=== PATIENT | male | born 1990 | race African-American/Black ===

== ENCOUNTER 2022-04-20 08:10 | Emergency (ER) | payer MEDICAID, SELFPAY ==
[2022-04-20 08:11] VITALS: BP 136/81; PULSE 56; RESP 18; TEMP 36.9; O2SAT 100; BMI 32.5
[2022-04-20 08:31] VITALS: BP 158/91; PULSE 53; RESP 12; O2SAT 100
[2022-04-20 09:31] VITALS: BP 154/79; PULSE 56; RESP 16
--- NOTE | 2022-04-20 09:43 | HMH.EDOD ---
Discharge Plan Disposition Patient Disposition: Home, Self-Care Prescriptions Prescriptions: New naloxone [Narcan] 4 mg/actuation spray,non-aerosol 4 mg intranasal Q2M Qty: 2 1RF Rx Instructions: spray 1 dose into ONE nostril; alternate nostrils w each dose until help arrives No Action ciprofloxacin HCl [Cipro] 500 mg tablet 500 mg PO BID Qty: 20 0RF naproxen [Naprosyn] 500 mg tablet 500 mg PO BID PRN (Reason: pain) Qty: 60 2RF Referrals Follow up/Referrals: Provider,Referral, [Primary Care Provider] - See instructions Activity Restrictions/Add. Instructions Additional Instructions/Restrictions: Recommend following up with your primary care doctor to talk about opioid use disorder treatment Clinical Impressions Clinical Impression: Drug overdose Instructions Patient Instructions: DI for Drug Overdose in Adults Discharge ED Provider: Truman Henriquez Overdose HPI General Chief Complaint: Overdose Stated Complaint: OD Time Seen by Provider: 04/20/22 08:15 Mode of Arrival: EMS Source of Information: Patient and EMS Limitations: No Limitations Description of Symptoms (Recalled from ER Triage Doc. by RN): pt was dropped by some guys on the side of the road after overdosing on IV fentanyl and given narcan. His grandmother picked him up and was with grandmother when EMS arrived to pt. PT arrived with feces and vomit all over his self and clothing, c/o pain and needing his prescribed methodone. [facility] pt was given 5 nasal narcan before he arrived to them. PT given gown and attempted to help to change out of his clothes, pt refusing at this time. PT is refusing any blood work or any intervention at this time. States he only wants his prescribed methodone for his pain. History of Present Illness HPI Narrative: Patient is a 31-year-old male with a history of substance abuse who presents with concern for overdose. Reported that the patient was using IV fentanyl earlier today when he became unresponsive. He was given 5 doses of nasal Narcan by bystanders prior to him being dropped off at his grandmother's house. His grandmother called EMS and they transported the patient here. Upon arrival patient is covered in feces and vomit. He states that he is in pain all over and is requesting methadone. He denies any shortness of breath. Denies any substance abuse. He declines any blood work or IV access at this time. Related Data Previous Rx's Medication Instructions Recorded ciprofloxacin HCl 500 mg tablet 500 mg PO BID #20 tabs 11/26/21 (Cipro) naproxen 500 mg tablet (Naprosyn) 500 mg PO BID PRN pain #60 tabs 11/26/21 naloxone 4 mg/actuation nasal 4 mg intranasal Q2M #2 ea 04/20/22 spray (Narcan) Allergies Allergy/AdvReac Type Severity Reaction Status Date / Time No Known Allergies Allergy Unverified 11/26/21 14:14 PFSH PFSH Social History Smoking Status: Current every day smoker alcohol intake: current current occupational status: unemployed Travel in the last 8 weeks: None ROS Obtained: Yes All systems reviewed & no additional complaints except as documented A 14 point review system was performed and negative except per HPI Physical Exam General General appearance: alert and in no apparent distress Comment: Clothing covered in vomit and feces but awake and irritable, yawning Head Head exam: atraumatic, normocephalic and normal inspection Eye Eye exam: Present normal appearance, PERRL and EOMI ENT ENT exam: Present normal exam, normal oropharynx, mucous membranes moist, TM's normal bilaterally and normal external ear exam Neck Neck exam: Present normal inspection, full ROM and trachea midline; Absent meningismus or lymphadenopathy Chest Chest inspection: Present normal inspection and symmetric chest wall rise; Absent tenderness Respiratory Respiratory exam: Present normal lung sounds bilaterally; Absent respiratory distress Cardiovascular Cardiovascular e
[2022-04-20 10:20] VITALS: BP 154/79; PULSE 53; RESP 16; TEMP 36.9; O2SAT 100
== END 2022-04-20 10:21 | disposition home or self-care (01) ==
PROVIDERS: Emergency Provider Student in an Organized Health Care Education/Training Program
DX: T40.411A Poisoning by fentanyl or fentanyl analogs, accidental (unintentional), initial encounter (principal); Z79.1 Long term (current) use of non-steroidal anti-inflammatories (NSAID)
CPT/HCPCS: 99284

== ENCOUNTER → 2023-05-06 15:51 | Outpatient (CLI) | payer MEDICAID, SELFPAY ==
[2023-05-06 17:17] LABS: Basophils % 0.5 % (0.1-2.0); Eosinophils # 0.1 K/mm3 (0.0-0.4); Hematocrit 54.6 % (42.0-52.0); Hemoglobin 17.2 g/dL (14.1-18.0); Lymphocytes # 1.8 K/mm3 (0.7-4.5); Lymphocytes % 30.9 % (10-50); Mean Corpuscular HGB Conc 31.5 g/dL (31.8-35.4); Mean Corpuscular Hemoglobin 28.3 pg (27.0-31.2); Mean Corpuscular Volume 89.8 fl (80-94); Mean Platelet Volume 7.7 fl (7.4-10.4); Monocytes # 0.3 K/mm3 (0.1-1.0); Monocytes % 4.6 % (1.7-9.3); Neutrophils # 3.6 K/mm3 (1.8-7.8); Platelet Count 385 K/mm3 (142-424); Red Blood Count 6.08 M/mm3 (4.60-6.20); Red Cell Distribution Width 14.3 % (11.5-17.5); White Blood Count 5.7 K/mm3 (4.8-10.8)
[2023-05-06 17:18] LABS: Alanine Aminotransferase 29 U/L (12-78); Albumin/Globulin Ratio 1.1 (1.1-1.8); Alkaline Phosphatase 96 U/L (38-126); Anion Gap 17.2 mEq/L (5-15); Aspartate Amino Transferase 32 U/L (17-59); Bilirubin,Total 0.3 mg/dl (0.2-1.3); Blood Urea Nitrogen 11 mg/dl (9-20); Calcium 9.7 mg/dl (8.4-10.2); Carbon Dioxide 26 mmol/L (22.0-30.0); Chloride 101 mmol/L (98-107); Estimated Glomerular Filt Rate 113 ml/min (>60); GFR (African American) 136 ML/MIN (>60); Globulin 4.7 g/dL (1.3-3.2); Glucose 122 mg/dl (74-100); Potassium 4.2 mmoL/L (3.5-5.1); Sodium 140 mmol/L (136-145); Total Protein,Serum 9.7 g/dl (6.3-8.2)
[2023-05-08 08:10] LABS: Hepatitis B Core Antibody, IgM Negative (Negative)
[2023-05-08 11:33] LABS: HIV Screen 4th Generation wRfx Non Reactive (Non Reactive); Rapid Plasma Reagin Ab Titer Non Reactive titer (NonRea<1:1)
[2023-05-10 19:58] LABS: QuantiFERON-TB Gold Plus Negative (Negative)
[2023-05-12 21:42] LABS: HCV Genotype Charge YES; Hepatitis C Genotype 2b (.)
[2023-05-22 08:40] LABS: Hepatitis B Surface Antigen Negative
== END ==
PROVIDERS: PCP Nurse Practitioner Family; Visit Provider Nurse Practitioner Family
DX: F11.20 Opioid dependence, uncomplicated (principal)
CPT/HCPCS: 36415; 80053; 85025; 86480; 86593; 86703; 86706; 87340; 87522; 87902; G0432

== ENCOUNTER 2025-02-25 10:02 | Emergency (ER) | payer SELFPAY ==
[2025-02-25] VITALS (13 sets, daily range): BP systolic 102–148; BP diastolic 50–86; PULSE 47–102; RESP 15–25; TEMP 36.6–37; O2SAT 92–100; BMI 33.5
--- NOTE | 2025-02-25 10:08 | ECG_ITS ---
APPROVED REPORT Exam: Resting ECG HR:51 bpm ECG Measurements Heart Rate 51 AXES PA 158 P 8 QRSd 112 QRS 35 QT 480 T 30 QTc 457 Conclusion Sinus bradycardia at [address] or T wave changes concerning for ischemia Electronically signed by : Anette Maldonado, 02/25/2025 17:58:23
--- NOTE | 2025-02-25 10:08 | HMH.EDGENADL ---
Discharge Plan Disposition Patient Disposition: Home, Self-Care Condition: Good Prescriptions Prescriptions: New ondansetron 4 mg tablet,disintegrating 4 mg PO Q8H PRN (Reason: nausea and vomiting) 4 Days Qty: 10 0RF No Action naproxen [Naprosyn] 500 mg tablet 500 mg PO BID PRN (Reason: pain) Qty: 60 2RF azithromycin [Zithromax Z-Roc] 250 mg tablet See Rx Instructions PO .COMPLEX Qty: 6 0RF Rx Instructions: For 250 mg dose pack: take 500 mg today (day 1), then 250 mg for 4 days (days 2-5) PO naloxone [Narcan] 4 mg/actuation spray,non-aerosol 4 mg intranasal Q2M Qty: 2 1RF Rx Instructions: spray 1 dose into ONE nostril; alternate nostrils w each dose until help arrives methadone 10 mg Tablet 130 mg PO DAILY Referrals Follow up/Referrals: Provider,Referral, MD [Primary Care Provider, Medical] - See instructions Activity Restrictions/Add. Instructions Additional Instructions/Restrictions: Take Zofran as needed for nausea and vomiting. Continue to stay well-hydrated with water, other electrolyte solutions. Return to the emergency department if you are unable to tolerate oral intake or if you have any other acute concerns. Clinical Impressions Clinical Impression: Vomiting Instructions Patient Instructions: DI for Diarrhea and Traveler's Diarrhea -- Adult, DI for Diarrhea and Traveler's Diarrhea -- Child, DI for Nausea -- Adult, DI for Nausea -- Child Print Language Print Language: Slovenian Discharge ED Provider: Anette Maldonado Adult HPI General Chief complaint: Nausea/Vomiting/Diarrhea Stated complaint: NAUSEA/VOMITING Time Seen by Provider: 02/25/25 10:08 History of Present Illness HPI narrative: Patient is a 34-year-old male with a past medical history of methadone use who presented to the emergency department with acute onset vomiting this morning. Patient states that he has had multiple episodes of vomiting, patient denies any diarrhea. Patient denies any abdominal pain. Patient denies any chest pain or shortness of breath. Patient has been unable to tolerate oral intake. Patient denies any headache or vision changes. Patient denies any prior surgical history. Patient denies any fevers. Patient denies any recent sick contacts. Related Data Home Medications ?Medication ?Instructions ?Recorded ?Confirmed methadone 10 mg tablet 130 mg PO DAILY 02/25/25 02/25/25 Previous Rx's ?Medication ?Instructions ?Recorded naproxen 500 mg tablet (Naprosyn) 500 mg PO BID PRN pain #60 tabs 11/26/21 naloxone 4 mg/actuation nasal 4 mg intranasal Q2M #2 ea 04/20/22 spray (Narcan) azithromycin 250 mg tablet See Rx Instructions PO .COMPLEX #6 06/21/22 (Zithromax Z-Roc) tabs ondansetron 4 mg disintegrating 4 mg PO Q8H PRN nausea and 02/25/25 tablet vomiting 4 days #10 tabs Allergies Allergy/AdvReac Type Severity Reaction Status Date / Time No Known Allergies Allergy Unverified 11/26/21 14:14 [facility] Disclaimer: The information contained in this section may have been updated after the patient was seen, as this information can be updated by other users. Social History Smoking Status: Current every day smoker alcohol intake: current alcohol intake frequency: holidays/special occasions only current occupational status: unemployed Travel in the last 8 weeks?: None Have you lived/traveled outside [place] in past 30 days?: No Contact w/someone who lives/traveled outside [place] past 30 days?: No Exposure to someone with infectious disease in past 14 days?: No Do you have a fever (greater than 100.4 F or 38 C)?: No Have you tested positive for COVID-19?: No Exposed to someone with COVID-19 in past 14 days?: No Do you have a sore throat?: No Do you have a cough?: No Do you have any weakness?: No Do you have any diarrhea?: No Are you experiencing any unusual bleeding?: No Do you have any muscle aches/pain?: No Do you have any abdominal pain?: No Are you experiencing loss of taste or smell?: No Other Medical History Have you received the Pneumonia Vaccine: No ROS Obtained: Yes All systems reviewed & no additional complaints except as documented and Yes Systems reviewed as appropriate & no additional complaints except as documented Physical Exam General General appearance: alert, in no apparent distress and other (Diaphoretic) Head Head exam: atraumatic, normocephalic and normal inspection Eye Eye exam: Present normal appearance, PERRL and EOMI; Absent scleral icterus ENT ENT exam: Present normal exam and normal external ear exam Neck Neck exam: Present normal inspection and full ROM Chest Chest inspection: Present normal inspection and symmetric chest wall rise Respiratory Respiratory exam: Present normal lung sounds bilaterally; Absent respiratory distress or wheezes Cardiovascular Cardiovascular exam: Present regular rate, normal rhythm and normal heart sounds Abdominal Exam Abdominal exam: Present soft and distention; Absent tenderness, guarding or rebound Extremities Exam Extremities exam: Present normal inspection and full ROM Back Exam Back exam: Present normal inspection and full ROM Neurological Exam Neurological exam: Present alert and oriented X3 Psychiatric Psychiatric exam: Present normal affect and normal mood Skin Skin exam: Present warm and dry Medical Decision Making Medical Records Screening: Per USPSTF and CDC recommendations, given the prevalence of disease in our region, it is our hospital?s policy to screen for HIV and viral Hepatitis for all patients aged 18 and over and those with ongoing risk factors. Jose Carlos Inquiry Pt receiving controlled substance: No Vital Signs: 02/25/25 10:08 02/25/25 10:11 02/25/25 10:31 Temperature 98.6 F Temperature Source Oral Pulse Rate 60 51 L Pulse Rate [Left] 102 H Respiratory Rate 20 15 Blood Pressure 126/85 134/74 Blood Pressure [Left Arm] 126/85 Blood Pressure Mean Blood Pressure Mean [Left Arm] 98 Blood Pressure Source Blood Pressure Source [Left Arm] Automatic Cuff Blood Pressure Position 02 Sat by Pulse Oximetry 100 98 93 L Oxygen Delivery Method Room Air 02/25/25 11:01 02/25/25 11:30 02/25/25 12:01 Temperature Temperature Source Pulse Rate 50 L 52 L 55 L Pulse Rate [Left] Respiratory Rate 23 20 18 Blood Pressure 124/76 148/86 H 105/50 L Blood Pressure [Left Arm] Blood Pressure Mean 97 Blood Pressure Mean [Left Arm] Blood Pressure Source Automatic Cuff Blood Pressure Source [Left Arm] Blood Pressure Position Sitting 02 Sat by Pulse Oximetry 97 97 98 Oxygen Delivery Method Room Air 02/25/25 12:32 02/25/25 13:01 02/25/25 13:31 Temperature Temperature Source Pulse Rate 54 L 50 L 54 L Pulse Rate [Left] Respiratory Rate 15 20 17 Blood Pressure 113/73 102/68 L 147/68 H Blood Pressure [Left Arm] Blood Pressure Mean Blood Pressure Mean [Left Arm] Blood Pressure Source Automatic Cuff Blood Pressure Source [Left Arm] Blood Pressure Position Sitting 02 Sat by Pulse Oximetry 99 92 L 97 Oxygen Delivery Method Room Air 02/25/25 14:00 02/25/25 14:31 02/25/25 15:01 Temperature Temperature Source Pulse Rate 47 L 51 L Pulse Rate [Left] Respiratory Rate 24 25 H 19 Blood Pressure 131/69 132/75 121/71 Blood Pressure [Left Arm] Blood Pressure Mean Blood Pressure Mean [Left Arm] Blood Pressure Source Blood Pressure Source [Left Arm] Blood Pressure Position 02 Sat by Pulse Oximetry 99 98 99 Oxygen Delivery Method 02/25/25 15:50 Temperature 97.9 F Temperature Source Oral Pulse Rate 49 L Pulse Rate [Left] Respiratory Rate 16 Blood Pressure 138/83 Blood Pressure [Left Arm] Blood Pressure Mean Blood Pressure Mean [Left Arm] Blood Pressure Source Automatic Cuff Blood Pressure Source [Left Arm] Blood Pressure Position Supine 02 Sat by Pulse Oximetry Oxygen Delivery Method Room Air Lab Data Lab results reviewed: Yes I reviewed the patient's lab results. Lab Results 02/25/25 10:16: WBC 9.4, RBC 4.78, Hgb 14.5, Hct 42.9, MCV 89.7, MCH 30.3, MCHC 33.8, RDW 13.1, Plt Count 336, MPV 8.7, Neut % (Auto) 72.2, Lymph % (Auto) 17.6, Mcmullen % (Auto) 7.2, Eos % (Auto) 2.4, Baso % (Auto) 0.4, Neut # (Auto) 6.8, Lymph # (Auto) 1.7, Mcmullen # (Auto) 0.7, Eos # (Auto) 0.2, Baso # (Auto) 0.0, Sodium 139, Potassium 3.7, Chloride 101, Carbon Dioxide 27, Anion Gap 14.7, BUN 17, Creatinine 0.90, Estimated Creat Clear 180, Estimated GFR 97, Est GFR ( Amer) 118, Glucose 121 H, Calcium 9.4, Magnesium 1.7, Total Bilirubin 0.3, AST 32, ALT 24, Alkaline Phosphatase 120, Total Protein 8.6 H, Albumin 4.5, Globulin 4.1 H, Albumin/Globulin Ratio 1.1, Lipase 32, HCV Ab LINDSEY w/Rflx PCR Qn Reactive, HIV Ag/Ab Combo Qual Negative 02/25/25 10:16 02/25/25 10:16 Orders (Tests/Meds): ED MEDICATIONS Discontinued Medications Generic Name Dose Route Start Last Admin Trade Name Freq PRN Reason Stop Dose Admin Diphenhydramine HCl 25 mg 02/25/25 10:09 02/25/25 10:36 Diphenhydramine 50mg/Ml Vial IV 02/25/25 10:10 25 mg ONCE ONE Administration Sodium Chloride 1,000 mls @ 999 mls/hr 02/25/25 10:09 02/25/25 10:36 Sod Chlor 0.9% 1000ml Bag IV 02/25/25 11:09 999 mls/hr .Q1H1M ONE Administration Sodium Chloride 1,000 mls @ 999 mls/hr 02/25/25 12:31 02/25/25 12:48 Sod Chlor 0.9% 1000ml Bag IV 02/25/25 13:31 999 mls/hr .Q1H1M ONE Administration Methadone HCl 130 mg 02/25/25 14:37 02/25/25 15:13 Methadone 10mg Tablet PO 02/25/25 14:38 130 mg ONCE ONE Administration Ondansetron HCl 4 mg 02/25/25 12:05 02/25/25 12:12 Ondansetron 4mg/2ml Vial IV 02/25/25 12:06 4 mg ONCE ONE Administration Prochlorperazine Edisylate 10 mg 02/25/25 12:31 02/25/25 12:48 Prochlorperazine 10mg/2ml Vial IV 02/25/25 12:32 10 mg ONCE ONE Administration ORDERS Category Date Time Status CBC w/Auto Diff [Complete Blood Count Auto Diff] Stat Lab 02/25/25 10:16 Completed CMP [Comprehensive Metabolic Panel] Stat Lab 02/25/25 10:16 Completed HCV RNA PCR, Quant Stat Lab 02/25/25 10:16 Received HIV Combo Stat Lab 02/25/25 10:16 Completed Hepatitis C Ab Qual. W/ RFX Stat Lab 02/25/25 10:16 Completed Lipase Stat Lab 02/25/25 10:16 Completed Magnesium Stat Lab 02/25/25 10:16 Completed Medical Decision Narrative: Patient is a 34-year-old male with a past medical history of methadone use who presented to the emergency department with acute onset of nausea and vomiting this morning. Patient reports multiple episodes of vomiting. Patient has been unable to tolerate oral intake. Patient denies any other symptoms at this time. On arrival, patient was diaphoretic, patient's vital signs were otherwise unremarkable. Patient's differential includes but not limited to: Acute gastroenteritis, dehydration, electrolyte abnormalities, low concern for obstruction given normal bowel movements without any prior surgical history. At this time, labs were ordered which were reviewed and interpreted by myself.Patient CBC was reviewed and interpreted by myself and showed no leukocytosis, stable hemoglobin. CMP showed no acute electrolyte abnormalities, no evidence of CORBY. Patient was given 2 L of IV fluids in the emergency department. Patient was given multiple antiemetics. EKG was reviewed and interpreted by myself and showed normal sinus rhythm without acute ST or T wave changes concerning for ischemia. After symptomatic management in the emergency department, patient was able to tolerate oral intake without difficulties. Patient was given his home methadone and patient was otherwise discharged home in stable condition with Zofran return precautions were discussed and patient was discharged home in stable condition. Critical Care Critical Care Time Critical Care Time: No
[2025-02-25 10:24] LABS: Hematocrit 42.9 % (42.0-52.0); Hemoglobin 14.5 g/dL (14.1-18.0); Immature Granulocytes % 0.2 %; Mean Corpuscular HGB Conc 33.8 g/dL (31.8-35.4); Mean Corpuscular Hemoglobin 30.3 pg (27.0-31.2); Mean Corpuscular Volume 89.7 fl (80-94); Nucleated Red Blood Cells % 0 %; Platelet Count 336 K/mm3 (142-424); Red Blood Count 4.78 M/mm3 (4.60-6.20); Red Cell Distribution Width-SD 43.4 fL; White Blood Count 9.4 K/mm3 (4.8-10.8)
[2025-02-25 10:30] LABS: Albumin Level 4.5 g/dl (3.5-5.0); Chloride 101 mmol/L (98-107); Potassium 3.7 mmoL/L (3.5-5.1); Sodium 139 mmol/L (136-145)
[2025-02-25 10:32] LABS: Blood Urea Nitrogen 17 mg/dl (9-20); Creatinine Clearance Estimated 180 mL/min (50-200); Creatinine,Serum 0.90 mg/dl (0.66-1.25); Estimated Glomerular Filt Rate 97 ml/min (>60); GFR (African American) 118 ML/MIN (>60)
[2025-02-25 10:33] LABS: Alanine Aminotransferase 24 U/L (12-78); Albumin/Globulin Ratio 1.1 (1.1-1.8); Alkaline Phosphatase 120 U/L (38-126); Anion Gap 14.7 mEq/L (5-15); Aspartate Amino Transferase 32 U/L (17-59); Bilirubin,Total 0.3 mg/dl (0.2-1.3); Calcium 9.4 mg/dl (8.4-10.2); Carbon Dioxide 27 mmol/L (22.0-30.0); Globulin 4.1 g/dL (1.3-3.2); Glucose 121 mg/dl (74-100); Lipase 32 U/L (23-300); Magnesium 1.7 mg/dl (1.6-2.3); Total Protein,Serum 8.6 g/dl (6.3-8.2)
[2025-02-25] MEDS: 0.9 % SODIUM CHLORIDE 1000ML 1,000 ML 999 ML IV ×2 (10:36→12:48)
[2025-02-25 12:06] LABS: Hepatitis C Ab Qual. W/ RFX REACTIVE (Negative)
[2025-02-25] MEDS: ONDANSETRON 4MG/2ML VIAL 4 MG IV (12:12)
[2025-02-25] MEDS: PROCHLORPERAZINE 10MG/2ML VIAL 10 MG IV (12:48)
--- NOTE | 2025-02-25 15:19 | P.CONPHA_ITS ---
Pharmacy Intervention Comments: DOSE OF METHADONE VERIFIED WITH [facility] WITH MATT THOMAS APRN. PATIENT TAKES METHADONE SUSPENSION 130 MG DAILY PER CLINIC.
--- NOTE | 2025-02-25 15:19 | HMH.PHAINT1 ---
Pharmacy Intervention Comments: DOSE OF METHADONE VERIFIED WITH [facility] WITH MATT THOMAS APRN. PATIENT TAKES METHADONE SUSPENSION 130 MG DAILY PER CLINIC.
== END 2025-02-25 15:51 | disposition home or self-care (01) ==
PROVIDERS: Emergency Provider Student in an Organized Health Care Education/Training Program
DX: R11.2 Nausea with vomiting, unspecified (principal); F17.210 Nicotine dependence, cigarettes, uncomplicated
CPT/HCPCS: 80053; 83690; 83735; 85025; 86803; 87389; 87522; 93005; 96361; 96374; 96375; 99284; J0780; J1200; J2405; J7030